=== PATIENT | male | born 1960 | race Caucasian/White ===

== ENCOUNTER 2020-02-20 09:58 | Outpatient (CLI) | payer OTHER ==
--- NOTE | 2020-02-20 11:16 | RAD ---
PA AND LATERAL VIEWS CHEST: Date: 02/20/2020 HISTORY: Dyspnea. COMPARISON: 02/16/2017. FINDINGS: The heart size is normal. The lungs are expanded without focal areas of consolidation, pneumothoraces , or pleural effusions. No acute osseous abnormalities are seen. IMPRESSION: No radiographic evidence of acute cardiopulmonary process. POS: OFF
== END 2020-02-20 09:59 | disposition home or self-care (01) ==
LOC: BICRAD 09:58
PROVIDERS: ATTEND Internal Medicine Pulmonary Disease
DX: R06.00 Dyspnea, unspecified (principal)
CPT/HCPCS: 71046

== ENCOUNTER 2021-02-05 08:20 | Outpatient (CLI) | payer OTHER ==
[2021-02-05] MEDS ORDERED: Iopamidol-370 76% 500 ML 1 ML ONE (09:48)
== END 2021-02-05 08:21 | disposition home or self-care (01) ==
LOC: BICCT 08:20
PROVIDERS: ATTEND Internal Medicine Pulmonary Disease
DX: R91.1 Solitary pulmonary nodule (principal)
CPT/HCPCS: 71260; 82565